=== PATIENT | male | born 1995 | race Caucasian/White ===

== ENCOUNTER 2018-03-24 14:07 | Emergency (ER) | payer MEDICARE ==
[~2018-03-24] VITALS: Ht 177.8 cm; Wt 93.0 kg
--- NOTE | 2018-03-24 14:08 | NUR ---
PT. CAME INTO THE ED VIA ALS POST SEIZURE. ACCORDING TO ALS STAFF " PT. WAS IN BUSINESS OFFICE IN [place] SITTING ON HIS CHAIR, WHEN HE STARTED HAVING A SEIZURE THAT LASTED 5 MIN, THEY HELPED HIM TO THE FLOOR, AND VOMITED ONCE AFTERWARDS". PT. STATES HE HAS A HISTORY OF SEIZURES AND TAKES HIS MEDICATION PRESCRIBED, PT. STATES " LAST TIME I HAD A SEIZURE WAS LAST MONTH. PT. IS AAOX4, RR EVEN AND UNLABORED. DENIES DIZZYNESS OR NAUSEA. ER MD NOTIFIED. WILL CONTINUE TO MONITOR.
--- NOTE | 2018-03-24 14:09 | NUR ---
PT BIBA ALS TO BED 10
[2018-03-24 14:12] VITALS: BP 126/61
[2018-03-24] MEDS ORDERED: LORazepam 2 MG/ML VIAL IVP ONE (14:25)
--- NOTE | 2018-03-24 15:29 | NUR ---
PT. RESTING COMFORTABLY IN BED , SEIZURE PRECAUTIONS IN PLACE, BED IN LOWEST POSITION,PT ASLEEP , RR EVEN AND UNLABORED. WILL CONTINUE TO MONITOR.
--- NOTE | 2018-03-24 15:40 | NUR ---
COUSIN TO CALL FOR A RIDE WHEN DISCHARGE: MAIN [phone].
--- NOTE | 2018-03-24 16:36 | NUR ---
PT. AAOX4, RR EVEN AND UNLABORED, BED IN LOWEST POSITION. WILL CONTINUE TO MONITOR.
[2018-03-24 16:43] VITALS: BP 106/65
--- NOTE | 2018-03-24 16:43 | NUR ---
Patient discharged with v/s stable. Written and verbal after care instructions given and explained. Patient verbalized understanding. Ambulatory with steady gait. All questions addressed prior to discharge. Advised to follow up with PMD.
== END 2018-03-24 16:43 | disposition home or self-care (01) ==
LOC: MED 14:07
DX: S00.532A Contusion of oral cavity, initial encounter (principal); R56.9 Unspecified convulsions; W50.3XXA Accidental bite by another person, initial encounter; Y93.89 Activity, other specified; Y92.89 Other specified places as the place of occurrence of the external cause; Y99.8 Other external cause status
CPT/HCPCS: 96374; 99284; J2060